=== PATIENT | female | born 1950 | race Caucasian/White ===

== ENCOUNTER → 2017-02-07 | Outpatient (CLI) | payer BC, MEDICARE ==
[~2017-02-07] MED LIST: ALDACTONE PO; AMLODIPINE BESYL5 MG PO; ANTI-DIARRHEAL2 M1 PO; ASPIRIN81 M2 PO; ATIVAN0.5 MG PO; BENZONATATE200 M1 PO; CORLANOR5 MG PO; DEXAMETHASONE4 MG PO; ELIQUIS5 MG PO; FLAGYL PO; HYDROCODON-ACE1 EAC9 PO; LIPITOR20 MG PO; LOVENOX40 MG/0.4 INJ; MARINOL2.5 MG PO; MONTELUKAST SOD10 MG PO; NITROSTAT0.4 MG SL; NORVASC PO; OMEPRAZOLE20 M2 PO; PANTOPRAZOLE SO40 MG PO; PHENERGAN12.5 M2 PR; PRILOSEC2.5 MG; PRILOSEC20 M1 PO; REGLAN10 MG PO; SINGULAIR PO; ZESTRIL2.5 M1 PO; ZOFRAN ODT4 MG PO; ZYRTEC-D TABLE1 EACH PO
--- NOTE | ~2017-02-07 | CT55 ---
[facility] A Service [facility] RADIOLOGY TEXT RESULTS PATIENT: MAN RENEE LOCATION: [facility] : 52 UNIT #: [id number] AGE: [address]: Everette Lozano MD SEX: F ORDER DR: [id number] [place] [id number] [facility]. [place], [place] [address] [id number] O MR#: [id number] Acc #: [id number] NAME: MAN RENEE : 1950 SEX: F STUDY DATE/TIME: 02/07/2017 14:39 UNIT: [facility] ROOM: STUDY DESCRIPTION: CT Chest W Con Attending Physician: Everette Lozano M.D. Referring Physician: Everette Lozano M.D. Ordering Physician: Everette Lozano M.D. Primary Care Physician: Loreto Cantu M.D. MEDICAL IMAGING REPORT This report is preliminary unless electronic signature is present EXAM CT of the chest with contrast INDICATION Cecal adenocarcinoma. Routine surveillance, observation for metastatic disease. TECHNIQUE CT scan of the chest was performed following administration of IV contrast. Coronal and sagittal reformatted images were obtained. This CT exam was performed with one or more of the following radiation dose reduction techniques: automatic exposure control, adjustment of mA and/or kV according to patient size, and iterative reconstruction. COMPARISON 06/01/2015 FINDINGS There is no suspicious lymphadenopathy. Tiny hiatal hernia. No pleural effusion. There is linear scarring or atelectasis in the inferior aspect of the right lung base which is stable. There is a stable 4.0 mm nodule in the medial right lower lobe. This is unchanged since last year. This is also seen on a study from July 2015. No new nodules. No suspicious nodules. Please refer to separately dictated CT of the abdomen and pelvis for findings below the diaphragm. The bone windows are unremarkable. IMPRESSION No evidence for metastatic disease to the chest. Dictated by... Adrian Bettencourt M.D. [facility] A Service of [facility] RADIOLOGY TEXT RESULTS PATIENT: MAN RENEE LOCATION: [facility] : 52 UNIT #: [id number] AGE: [address]: Everette Lozano MD SEX: F ORDER DR: THIS IS AN ELECTRONICALLY VERIFIED REPORT Adrian Bettencourt M.D. at 02/09/2017 7:01 AM Dwain TD: 02/08/2017 09:12 JOB #: [id number] MEDICAL IMAGING REPORT Page 1 of 1 COPY
--- NOTE | ~2017-02-07 | CT2 ---
[facility] A Service of [facility] [place] RADIOLOGY TEXT RESULTS PATIENT: MAN RENEE [facility] : 52 UNIT #: [id number] AGE: [address]: Everette Lozano MD SEX: F ORDER DR: [id number] [facility] [address]. [place], [place] [address] [id number] O MR#: [id number] [employer] #: [id number] NAME: MAN RENEE : 1950 SEX: F STUDY DATE/TIME: 02/07/2017 13:12 UNIT: [facility] ROOM: STUDY DESCRIPTION: CT Abd and Pelv W Cont Attending Physician: Everette Lozano M.D. Referring Physician: Everette Lozano M.D. Ordering Physician: Everette Lozano M.D. Primary Care Physician: Loreto Cantu M.D. MEDICAL IMAGING REPORT This report is preliminary unless electronic signature is present EXAM CT abdomen and pelvis with contrast. DATE 02/07/2017 HISTORY Physician's order states malignant neoplasm of the cecum, adenocarcinoma. Patient states colon resection. No current complaints. Observation for metastatic disease. Restaging. COMPARISON CT abdomen and pelvis with contrast, 01/27/2016. PROCEDURE 5 mm axial images from the lung bases through the lesser trochanters after intravenous and enteric contrast administration. Sagittal and coronal reformatted images were obtained. This CT exam was performed with one or more of the following radiation dose reduction techniques: automatic exposure control, adjustment of mA and/or kV according to patient size, and iterative reconstruction. FINDINGS ABDOMEN FINDINGS: The liver is mildly steatotic. No focal or suspicious liver lesions. The gallbladder, spleen, pancreas, adrenals, and kidneys are within normal limits. There is a small esophageal hiatal hernia. No pathologically enlarged lymph nodes. No ascites. Surgical changes of ascending colectomy with anastomosis and surgical changes of the rectosigmoid colon. No abnormal soft tissue thickening is seen at either anastomotic site. There is a 7 mm triangular shaped focus of soft tissue thickening within [facility] A Service of [facility] RADIOLOGY TEXT RESULTS PATIENT: MAN RENEE LOCATION: [facility] : 52 UNIT #: [id number] AGE: [address]: Everette Lozano MD SEX: F ORDER DR: the right mid abdominal mesentery, which is similar to the more remote 08/26/2015 examination, favored to represent an area of postsurgical scarring. There is [id number] atherosclerotic disease within the abdominal aorta and common iliac arteries. PELVIS FINDINGS: Urinary bladder and uterus are normal. No pelvic adenopathy is seen. Moderate stool burden within the rectum. Degenerative disc changes at L5-S1 with posterior osteophyte formation and facet arthropathy. No acute or suspicious osseous abnormalities. IMPRESSION 1. No convincing evidence of recurrent or metastatic disease in the abdomen or pelvis in this patient with a history of colon cancer. 2. Surgical changes of ascending colectomy with ileocolic anastomosis and surgical changes of the rectosigmoid. 3. Hepatic steatosis. 4. CT chest performed on this same date has been dictated separately. Dictated by... Zunilda Calix M.D. THIS IS AN ELECTRONICALLY VERIFIED REPORT Zunilda Calix M.D. at 02/09/2017 7:11 AM KEMAL/luis TD: 02/08/2017 09:24 JOB #: [id number] MEDICAL IMAGING REPORT Page 1 of 1 COPY
[2017-02-07 13:50] LABS: POC - CREATININE 0.76 mg/dL (0.44-1.03); POC - GFR >60.0 mL/min (>60)
== END | disposition home or self-care (01) ==
LOC: CCAT 13:07
PROVIDERS: Internal Medicine Hematology & Oncology
DX: Z08 Encounter for follow-up examination after completed treatment for malignant neoplasm (principal); K76.0 Fatty (change of) liver, not elsewhere classified; Z85.038 Personal history of other malignant neoplasm of large intestine; Z90.49 Acquired absence of other specified parts of digestive tract
CPT/HCPCS: 71260; 74177; 82565; Q9967